=== PATIENT | male | born 1990 | race Hispanic/Latino ===

== ENCOUNTER 2019-08-28 12:51 | Emergency (ER) | payer BC, OTHER | END 2019-08-28 13:38 | disposition home or self-care (01) | LOC: ERS 12:51 | DX: J06.9 Acute upper respiratory infection, unspecified (principal); F41.9 Anxiety disorder, unspecified; F32.9 Major depressive disorder, single episode, unspecified; Z20.828 Contact with and (suspected) exposure to other viral communicable diseases; Z87.891 Personal history of nicotine dependence; Z79.899 Other long term (current) drug therapy | CPT/HCPCS: 87635; 99283; U0003 ==

== ENCOUNTER 2020-07-05 17:32 | Emergency (ER) | payer BC | END 2020-07-05 19:05 | disposition home or self-care (01) | LOC: ERS 17:32 | DX: G51.0 Bell's palsy (principal); Z87.891 Personal history of nicotine dependence | CPT/HCPCS: 99283 ==